=== PATIENT | female | born 1965 | race Caucasian/White ===

== ENCOUNTER → 2017-03-26 13:14 | Outpatient (CLI) | payer BC ==
--- NOTE | 2017-03-26 14:45 | NUR ---
CALLED TO MRI PT HAVING REACTION TO CONTRAST. O2 SAT 92 PERCENT ON [address] JOSE CALLED ORDERS OBTAINED FOR SOLUMEDROL 125MG IV X 1 AND BENEDRYL 50 MG IV X 1 AND DUONEB X 1. IV SITED TO RIGHT HAND WITH 22 GUAGE NEEDLE. ABBI MCKINNEY RN AT SIDE. 1500 MEDS DRAWN UP AND GIVEN. DUONEB GIVEN PER RT.
== END | disposition home or self-care (01) ==
LOC: D.MRI 03-04 13:30
DX: R51 Headache (principal)